=== PATIENT | female | born 1980 | race Caucasian/White ===

== ENCOUNTER 2022-02-19 14:03 | Outpatient (CLI) | payer MEDICAID, SELFPAY | END 2022-02-19 14:04 | disposition home or self-care (01) | LOC: NFLDREF 14:04 | PROVIDERS: PCP Physician Assistant Medical; Visit Provider Registered Nurse | DX: Z34.91 Encounter for supervision of normal pregnancy, unspecified, first trimester (principal); R76.8 Other specified abnormal immunological findings in serum; Z3A.12 12 weeks gestation of pregnancy | CPT/HCPCS: 87522 ==

== ENCOUNTER 2022-03-19 10:21 | Outpatient (CLI) | payer MEDICAID, SELFPAY | END 2022-03-19 10:22 | disposition home or self-care (01) | PROVIDERS: PCP Physician Assistant Medical; Visit Provider Registered Nurse | DX: O09.522 Supervision of elderly multigravida, second trimester (principal) | CPT/HCPCS: 81420 ==

== ENCOUNTER 2022-04-08 14:13 | Outpatient (CLI) | payer MEDICAID, SELFPAY | END 2022-04-08 14:14 | disposition home or self-care (01) | LOC: US 14:13 | PROVIDERS: PCP Physician Assistant Medical; Visit Provider Pediatrics Neonatal-Perinatal Medicine | DX: O09.522 Supervision of elderly multigravida, second trimester (principal); Z3A.19 19 weeks gestation of pregnancy | CPT/HCPCS: 76811 ==

== ENCOUNTER 2022-06-10 08:17 | Outpatient (CLI) | payer MEDICAID, SELFPAY ==
[2022-06-11 23:22] LABS: Rapid Plasma Reagin (RPR) Non Reactive (Non Reactive)
== END 2022-06-10 08:18 | disposition home or self-care (01) ==
LOC: FRMREF 08:17
PROVIDERS: PCP Physician Assistant Medical; Visit Provider Obstetrics & Gynecology
DX: Z34.90 Encounter for supervision of normal pregnancy, unspecified, unspecified trimester (principal)
CPT/HCPCS: 86592

== ENCOUNTER 2022-06-25 11:32 | Outpatient (CLI) | payer MEDICAID, SELFPAY ==
--- NOTE | 2022-06-25 11:30 | CRLHL7_ITS ---
For Patients: As a result of the Cures Act, medical imaging exams and procedure reports are released immediately into your electronic medical record. You may view this report before your referring provider. If you have questions, please contact your health care provider. INDICATION: female. Size greater than dates. 30 weeks 4 days according to the last menstrual period. TECHNIQUE: Transabdominal obstetrical ultrasound. FINDINGS: Single living intrauterine in breech presentation. Anterior placenta. heart rate 142 beats per minute. Normal amniotic fluid volume. Single deepest pocket measurement 5.9 cm. Biparietal diameter 7.65 cm, 30 weeks 5 days, 42nd percentile. Head circumference 29.68 cm, 32 weeks 6 days, 77th percentile. Abdominal circumference 29.84 cm, 33 weeks 6 days, greater than the 97th percentile. Femur length 5.54 cm, 29 weeks 1 day, 7.6 percentile. Composite calculated ultrasound age 31 weeks 5 days for sonographic due date of August 22, 2022. This is advanced by 1 week when compared with the age based on the last menstrual period provided. Estimated weight 1904 g which lies at the 87th percentile. The head to abdominal circumference ratio is 0.99 (0.96-1.15). The femur length to abdominal circumference ratio is 18.56 (20.0-24.0). IMPRESSION: Single living intrauterine in krystina breech presentation. Anterior placenta. Composite calculated ultrasound age 31 weeks 5 days with a sonographic due date of August 22, 2022. This is 1 week advanced when correlated with the age based on the last menstrual period provided. Dictated by Tuan Manrique MD @ 06/25/2022 9:24:29 PM (Electronically Signed)
== END 2022-06-25 11:33 | disposition home or self-care (01) ==
LOC: US 11:33
PROVIDERS: PCP Physician Assistant Medical; Visit Provider Physician Assistant
DX: O36.60X0 Maternal care for excessive fetal growth, unspecified trimester, not applicable or unspecified (principal); Z3A.30 30 weeks gestation of pregnancy
CPT/HCPCS: 76816

== ENCOUNTER 2022-07-08 09:43 | Outpatient (CLI) | payer MEDICAID, SELFPAY ==
--- NOTE | 2022-07-08 09:45 | CRLHL7_ITS ---
For Patients: As a result of the Century Cures Act, medical imaging exams and procedure reports are released immediately into your electronic medical record. You may view this report before your referring provider. If you have questions, please contact your health care provider. INDICATION: Advanced maternal age COMPARISON: 06/25/2022 TECHNIQUE: Real time de la garza scale imaging of the fetus was performed. Without non-stress testing. FINDINGS: Sonographic imaging demonstrates a single living intrauterine gestation. Fetus demonstrates a regular cardiac rate of 146 beats per minute. Fetus has a vertex position. The amniotic fluid volume appears normal and there is a single deepest pocket measurement of 7.4 cm. The fetus was active and demonstrated normal breathing movements. There was normal flexion and extension of the trunk and extremities. IMPRESSION: Normal biophysical profile score of 8 out of 8. Dictated by Alvino Miller MD @ 07/08/2022 10:31:33 AM (Electronically Signed)
== END 2022-07-08 09:44 | disposition home or self-care (01) ==
LOC: US 09:44
PROVIDERS: PCP Physician Assistant Medical; Visit Provider Obstetrics & Gynecology
DX: O09.519 Supervision of elderly primigravida, unspecified trimester (principal)
CPT/HCPCS: 76819

== ENCOUNTER 2022-08-05 11:09 | Outpatient (CLI) | payer MEDICAID, SELFPAY ==
[2022-08-06 12:19] LABS: Strep B DNA Probe NEGATIVE (Negative)
[2022-08-06 20:56] LABS: Strep B Pen/Amox Allergy Yes
== END 2022-08-05 11:10 | disposition home or self-care (01) ==
LOC: NFLDREF 11:09
PROVIDERS: PCP Physician Assistant Medical; Visit Provider Obstetrics & Gynecology
DX: Z34.93 Encounter for supervision of normal pregnancy, unspecified, third trimester (principal); Z3A.35 35 weeks gestation of pregnancy
CPT/HCPCS: 76816; 76819; 87081; 87653

== ENCOUNTER 2022-08-22 07:55 | Inpatient (IN) | payer MEDICAID, SELFPAY ==
[2022-08-22] VITALS (17 sets, daily range): BP systolic 106–144; BP diastolic 53–66; PULSE 76–105; RESP 16–22; TEMP 36.6–37; O2SAT 97–100; BMI 37.5
[2022-08-22] MEDS: miSOPROStoL 25 MCG/0.25 TABLET PO ×5 (09:31→19:29)
[2022-08-22 09:44] LABS: SARS PCR* Negative SARS-CoV-2 (Negative)
--- NOTE | 2022-08-22 20:56 | PM.OBHPLI ---
OB - H&P: HPI Labor/Induction History of Present Illness Time Seen by Provider: 09:00 Date Seen: 08/22/22 Chief Complaint: Leakage of fluid Chief complaint: Maternity : 3 Para: 2 Narrative: Noris Whitmore is a 41 year old female 002 at 38 weeks 6 days who presents to the Center due to copious amount of leakage of fluid at 6:00 a.m. she states that she woke up and was soaked and amniotic fluid. She endorses intermittent contractions, but not regular. She denies any vaginal bleeding or abnormal vaginal discharge. Patient denies fever, chills, chest pain, SOB, n/v, headache, vision changes, RUQ pain, or dizziness. Meds Home Medications and Allergies Home Medications Medication Instructions Recorded Confirmed Type acetaminophen 325 mg tablet 325 mg PO PRN 02/19/22 08/22/22 History diphenhydramine HCl 25 mg tablet 25 mg PO .Once as needed PRN 02/19/22 08/22/22 History prenat.vits,maria del rosario,[id number] 1 tab PO QDAY 02/19/22 08/22/22 History Allergies Allergy/AdvReac Type Severity Reaction Status Date / Time amoxicillin Allergy Severe Unknown- Verified 08/19/22 10:21 as a child strawberry Allergy Unknown Anaphylaxis Verified 08/22/22 08:02 cephalexin AdvReac Mild Vomiting Verified 08/19/22 10:21 Penicillin Allergy Unknown Unknown Uncoded 08/22/22 08:02 OB - H&P: Exam Physical Exam: Vital signs: Temp Pulse Resp BP Pulse Ox 97.8 F 88 16 108/59 L 97 08/22/22 20:40 08/22/22 20:40 08/22/22 20:40 08/22/22 20:40 08/22/22 19:59 Narrative: Physical exam: General: No acute distress Psych: Alert and oriented x3, full affect HEENT: Normocephalic, atraumatic Lungs: Unlabored breathing Abdomen: Gravid, soft Pelvic exam: Gross ROM. SVE 09/09/ OB - Problem Based A/P Additional Plan (1) : Problem details: AMA Status: Acute Plan - Patient presents with PROM. Will start with cervical ripening with miso per protocol and transition to pitocin - Pain control: patient desires epidural eventually - See full H&P by Dr. Trent on 08/12/2022
[2022-08-22] MEDS: LACTATED RINGERS 1000 ML 1,000 ML 999 ML IV ×3 (21:21→23:43)
[2022-08-22] MEDS: ACETAMINOPHEN 500 MG TABLET 1000 MG PO (21:56)
[2022-08-22] MEDS: ROPIVACAINE 0.2% 100 ml 100 ML 12 MG EPIDURAL (23:48)
[2022-08-23] VITALS (35 sets, daily range): BP systolic 102–135; BP diastolic 51–75; PULSE 77–184; RESP 16–20; TEMP 36.5–36.9; O2SAT 96–99
--- NOTE | 2022-08-23 00:12 | PM.ANBPRC ---
[facility] Medical History (Updated 07/22/22 @ 10:44 by Mamta Hall MD) Hyperopic astigmatism of both eyes (02/24/19) Mononucleosis syndrome (2018) Spontaneous vaginal delivery (07/09/18) Vaginal delivery (03/16/20) Surgical History (Updated 02/11/22 @ 09:22 by Tina Wang) History of placement of ear tubes Family History (Updated 02/09/22 @ 16:17 by Tina Wang) Maternal Grandmother Breast cancer Social History (Updated 02/09/22 @ 16:17 by Tina Wang) Narrative: Does not drink alcohol Does not use illicit drugs Non-smoker Smoking Status: Never smoker Meds Home Medications and Allergies Home Medications Medication Instructions Recorded Confirmed Type acetaminophen 325 mg tablet 325 mg PO PRN 02/19/22 08/22/22 History diphenhydramine HCl 25 mg tablet 25 mg PO .Once as needed PRN 02/19/22 08/22/22 History prenat.vits,maria del rosario,[id number] 1 tab PO QDAY 02/19/22 08/22/22 History Allergies Allergy/AdvReac Type Severity Reaction Status Date / Time amoxicillin Allergy Severe Unknown- Verified 08/19/22 10:21 as a child strawberry Allergy Unknown Anaphylaxis Verified 08/22/22 08:02 cephalexin AdvReac Mild Vomiting Verified 08/19/22 10:21 Penicillin Allergy Unknown Unknown Uncoded 08/22/22 08:02 Results Labs Labs: Laboratory Results - last 24 hr 08/22/22 07:20 SARS-CoV-2 (PCR) Negative SARS-CoV-2 Vital Signs Vital Signs: Last Vital Signs Temp 98.1 F 08/22/22 22:49 Pulse 89 08/23/22 00:11 Resp 20 08/22/22 22:49 BP 132/61 08/23/22 00:11 Pulse Ox 100 08/22/22 23:52 Weight: 99.246 kg Height: 162.56 cm Anesthesia Procedures Epidural Insertion Patient Location: OB Start Time: 23:30 Stop Time: 00:30 Start Date: 08/22/22 Stop Date: 08/23/22 Reason for Block: procedure for pain Patient Position: sitting Performed By: Trevor De La Paz Preanesthetic Checklist: IV checked, risks and benefits discussed, surgical consent, monitors and equipment checked, pre-op evaluation, timeout performed and anesthesia consent Prep: chlorhexidine gluconate Monitoring: blood pressure monitoring, continuous pulse oximetry and heart rate Approach: midline Vertebral Space: lumbar (1-5) Epidural Technique: DIANE saline Needle Type: Tuohy needle Injection Technique: continuous catheter Needle gauge: 17 Needle Length (cm): 10 cm Needle Insertion Depth (cm): 6 Catheter Gauge: 19 Catheter Type: multi-orifice Catheter at skin depth (cm): 12 Test Dose Result: negative and lidocaine 1.5% with epinephrine 1 to 200,000
[2022-08-23] MEDS: OXYTOCIN 30 unit/500 ML in NS 30 UNIT/500 ML BAG 325 UNIT IVPB (01:28)
[2022-08-23] MEDS: ACETAMINOPHEN 500 MG TABLET 1000 MG PO ×3 (06:34→23:20)
--- NOTE | 2022-08-23 10:04 | PM.OBPRCVD ---
Procedure Delivery date: 08/23/22 Procedure Done: Global Procedure Details: The patient is a 41 year-old G 3 P 2001 admitted on August 22 at 38 and 6/7 weeks gestation for spontaneous rupture of membranes. Cervical exam on admission was 1 cm/75 % effaced/-3 station with membranes ruptured in vertex presentation. Contractions were every 10-15 minutes. heart rate demonstrated baseline 150s bpm with moderate variability, positive accelerations, negative decelerations; a category 1 tracing. GBS negative. SROM occurred at 0600 on August 22 with clear fluid. Labor Analgesia: Nitrous gas an epidural Pitocin: Yes Labor onset: August 23 at midnight Complete: August 23 at 0050 Pushing: August at 0119 heart tones during second stage were cat II with intermittent variables At 0126 a viable male infant delivered in vertex OA presentation over first-degree perineal laceration via spontaneous vaginal delivery. Infant was placed on maternal abdomen. Cord was clamped and cut after a 30-60 second delay. Nose and mouth were bulb suctioned. Infant weight: 3490. 8 at 1 minute and 9 at 5 minutes. Shoulder dystocia: No. Nuchal cord: Tight nuchal cord times still, reduced after delivery of the head. Placenta delivered spontaneously and complete at 0129 with a 3 vessel cord. Complications: None. Mother and were stable after delivery. Laceration(s): First-degree, repaired with 2-0 chromic continuous locking suture. Estimated blood loss: 50 mL. Sponge and needles counts are correct. Mother and were stable at the time of this note. Noris is planning on breasting feeding. Events: Labor Augmentation and Premature Rupture of Membrane Intrapartal Events: Labor Augmentation Induction method: per misoprostol protocol Delivery augmentation: pitocin Delivery monitor: external FHT Route of delivery: Laceration description: Perineal - 1st Degree Delivery repair: Chromic Estimated blood loss (mL): 50 Anesthesia type: Epidural Disposition: floor [place] Infant Gender: Male total score - 1 minute: 8 total score - 5 minute: 9
[2022-08-23] MEDS: DOCUSATE SODIUM 100 MG CAPSULE PO (11:18)
--- NOTE | 2022-08-23 12:59 | PC.NURSE ---
Pt refused MMR vaccine .
[2022-08-23] MEDS: LANOLIN CREAM 1 APPLIC TOPICAL (23:20)
[2022-08-24] MEDS: ACETAMINOPHEN 500 MG TABLET 1000 MG PO ×2 (06:35→13:57)
[2022-08-24 06:58] LABS: Hemoglobin* 11.8 gm/dL (12.0-16.0)
--- NOTE | 2022-08-24 07:59 | PM.OBDSVD1 ---
DS: Providers Provider Time Seen by Provider: 07:30 Date Seen: 08/24/22 Date of admission: 08/22/22 07:55 Primary care physician: Sharon Delgado PA-C Admitting Clinician: Vivi Sanders MD Attending Physician on discharge: Mago Gaytan CNM Date of Discharge: 08/24/22 DS: Diagnosis Discharge Diagnosis (1) state: Status: Acute (2) Lactating mother: Status: Acute Exam Narrative: Exam Narrative: Objective: VSS, afebrile GENERAL APPEARANCE: ?normal affect, alert, no distress MOOD: ?appropriate HEENT: normocephalic, neck supple, full ROM CHEST: ?Symmetrical chest wall movement. ?Normal respiratory effort. ?Clear to auscultation HEART: ?regular rate and rhythm ABDOMEN: ?soft, non-tender. Uterine fundus is firm, 3 above Umbilicus, Midline and is appropriate for the stage of recovery. ?Bowel sounds present. PERINEUM: ?mild edema of the perineum, there is a 1st degree laceration that is healing well. EXTREMITIES: ?normal and no edema Const: Vital Signs, click to edit/add: Vital Signs - 24 hr 08/23/22 08:23 08/23/22 11:13 08/23/22 15:03 Temperature 98 F 97.7 F 97.7 F Pulse Rate [Blood Pressure Cuff] 81 80 90 Respiratory Rate 16 16 16 Blood Pressure [Le ft Arm] 122/73 Blood Pressure [Ri ght Arm] 106/66 106/69 Pulse Oximetry 96 96 97 Oxygen Delivery Me thod Room Air Room Air Room Air 08/23/22 19:31 08/23/22 23:23 Temperature 98 F 97.8 F Pulse Rate [Blood Pressure Cuff] 87 88 Respiratory Rate 20 20 Blood Pressure [Le ft Arm] 117/71 103/63 Blood Pressure [Ri ght Arm] Pulse Oximetry 98 98 Oxygen Delivery Me thod Room Air Room Air Documenting provider has reviewed patient's vital signs: yes OB - DS: Summary Hospital Course Hospital Course: Subjective: Rene is a 41 year old G 3 now P 3 at 38 6/7 weeks gestation that was admitted to the Center on 08/22/22 for PROM. She had an uncomplicated vaginal delivery. She delivered a viable male . The patient feels really good. The pain is well controlled with current medications. ?She has no new complaints. ?She is breast feeding and reports things are going well.? the patient has done well.? Vitals have been stable.? She has remained afebrile.? Has a good appetite, is tolerating a general diet. ?She is voiding without difficulty.? She is passing gas and has not had a bowel movement.? She is ambulating and denies any dizziness.? Has small amount of rubra lochia. ?She is planning natural family planning for prevention. Assessment: G3 now P3 Lactating Mother plan: Discharge home with baby. Follow up in 2 weeks and 6 weeks. , may follow up with if needed Peripartum Data Infant delivery method: Vaginal Laceration description: Perineal - 1st Degree complications: none Gender: Male Infant Discharge Plan: Home Status at Discharge Functional status at discharge: independent ambulation Overall status at discharge: patient is progressing back to baseline Time Spent with Patient Time attestation: Total time spent providing and/or coordinating discharge services: Time spent: Less than 30 minutes Discharge Plan Discharge Disposition: Home, Self-Care Date of Admission: 08/22/22 07:55 Attending Provider on Discharge: Mago Gaytan Primary Care Provider: Sharon Delgado Condition: Stable Anticipated Discharge Date/Time: 08/24/22 08:11 Discharge Medications: New docusate sodium 100 mg Capsule 100 mg PO BID Qty: 100 0RF Continued acetaminophen 325 mg tablet 325 mg PO PRN Rx Instructions: NO MORE THAN 4000 MG/DAY diphenhydramine HCl 25 mg tablet 25 mg PO .Once as needed PRN prenat.vits,maria del rosario,[id number] Tablet 1 tab PO QDAY Discharge Orders: Discharge Order (Routine); Ordered 08/24/22 Ordered By: Mago Gaytan Patient Education: OB Over the Counter Medication Information, OB Vaginal/Breast Feeding Additional Instructions: Return to clinic for 2 Week and 6 week visits Activity Level: Activity as Tolerated Discharge Diet: Regular Follow Up Appointments: Sharon Delgado PA-C [Primary Care Provider] - Forms: [employer] Info Instructions
[2022-08-24 08:10] VITALS: BP 104/70; PULSE 90; RESP 16; TEMP 37; O2SAT 96
== END 2022-08-24 15:50 | disposition home or self-care (01) | DRG 807 ==
LOC: OB OUT 07:56 → OB 07:56
PROVIDERS: Obstetrics & Gynecology; Admitting Provider Obstetrics & Gynecology; PCP Physician Assistant Medical; Visit Provider Obstetrics & Gynecology
DX: O42.02 Full-term premature rupture of membranes, onset of labor within 24 hours of rupture (principal); Z37.0 Single live birth; O70.0 First degree perineal laceration during delivery; Z3A.38 38 weeks gestation of pregnancy
CPT/HCPCS: 01967; 36415; 59200; 85018; 87635; A9270; J2795; J7120; S0020

== ENCOUNTER 2024-03-29 20:45 | Emergency (ER) | payer MEDICAID, SELFPAY ==
[2024-03-29 21:09] VITALS: BP 130/75; PULSE 80; RESP 18; TEMP 36.4; O2SAT 98; BMI 35.8
--- NOTE | 2024-03-29 21:50 | ED.GENADULT ---
HPI - General Adult General Chief complaint: Skin/Abscess/Foreign Body Stated complaint: L leg bug bite infection-red, hot-lower below knee Time Seen by Provider: 03/29/24 21:22 Source: patient Mode of arrival: ambulatory Limitations: no limitations History of Present Illness HPI narrative: 43-year-old female presenting today with concerns of a bug bite. Patient states that she believes that occurred on Wednesday, did not see a bug on her skin. Noticed on Wednesday and on Wednesday that the redness was increasing around the bug bite. The area is pruritic. No fevers or chills. No nausea or vomiting. No tick sightings. Related Data Previous Rx's ?Medication ?Instructions ?Recorded azithromycin 250 mg tablet See Rx Instructions PO .COMPLEX #6 07/24/23 tabs Allergies Allergy/AdvReac Type Severity Reaction Status Date / Time amoxicillin Allergy Severe Unknown- Verified 07/24/23 09:10 as a child strawberry Allergy Unknown Anaphylaxis Verified 07/24/23 09:10 cephalexin AdvReac Mild Vomiting Verified 07/24/23 09:10 azithromycin AdvReac Verified 03/29/24 21:11 Penicillin Allergy Unknown Unknown Uncoded 07/24/23 09:10 Review of Systems Status of ROS: Reports: 6 or more systems reviewed and unremarkable except as noted in History and below [facility] Medical History Bronchitis ?J40 - Bronchitis, not specified as acute or chronic (ICD-10) Vaginal delivery (03/16/20) ?O80 - Encounter for full-term uncomplicated delivery (ICD-10) Spontaneous vaginal delivery (07/09/18) ?O80 - Encounter for full-term uncomplicated delivery (ICD-10) Mononucleosis syndrome (2018) ?B27.90 - Infectious mononucleosis, unspecified without complication (ICD-10) Hyperopic astigmatism of both eyes (02/24/19) ?H52.203 - Unspecified astigmatism, bilateral (ICD-10) Surgical History History of placement of ear tubes ?Z96.22 - Myringotomy tube(s) status (ICD-10) Family History Maternal Grandmother Breast cancer Social History Narrative: Does not drink alcohol Does not use illicit drugs Non-smoker Smoking Status: Never smoker Little interest or pleasure in doing things: not at all Feeling down, depressed, or hopeless: not at all Exam Narrative: Exam Narrative: Well-nourished well-developed patient in no acute distress. Alert and oriented. Answers questions appropriately. Mood and affect are appropriate. Thoughts are goal oriented and rational. No tangential or magical thinking noted. Patient speaks in full sentences without needing to catch her breath. HEENT: Normocephalic atraumatic. Pupils are equally round reactive to light. Extraocular muscles are intact. Conjunctivae are moist without any icterus noted. Moist mucous membranes. Extremities: All the patient's left lower medial extremity she has a central elevated papule with surrounding light ecchymosis and erythema that extends approximately 4 cm in diameter. The skin is not indurated raised or hot. Const: Vital Signs, click to edit/add: Vital Signs - 24 hr 03/29/24 21:09 Temperature 97.6 F Pulse Rate [Pulse Oximeter] 80 Respiratory Rate 18 Blood Pressure [Ri ght Upper Arm] 130/75 Pulse Oximetry 98 Oxygen Delivery Me thod Room Air Course Vital Signs Vital signs: Initial Vital Signs Temperature 97.6 F 03/29/24 21:09 Temperature Source Temporal Artery Scan 03/29/24 21:09 Pulse Rate 80 03/29/24 21:09 Respiratory Rate 18 03/29/24 21:09 Blood Pressure 130/75 03/29/24 21:09 Blood Pressure Mean 93 03/29/24 21:09 Blood Pressure Position Sitting 03/29/24 21:09 Pulse Oximetry 98 03/29/24 21:09 Oxygen Delivery Method Room Air 03/29/24 21:09 Vital Signs Temperature 97.6 F 03/29/24 21:09 Pulse Rate 80 03/29/24 21:09 Respiratory Rate 18 03/29/24 21:09 Blood Pressure 130/75 03/29/24 21:09 Pulse Oximetry 98 03/29/24 21:09 Oxygen Delivery Method Room Air 03/29/24 21:09 Temperature 97.6 F 03/29/24 21:09 Pulse Rate 80 03/29/24 21:09 Respiratory Rate 18 03/29/24 21:09 Blood Pressure 130/75 03/29/24 21:09 Pulse Oximetry 98 03/29/24 21:09 Oxygen Delivery Method Room Air 03/29/24 21:09 Medical Decision Making MDM Narrative Medical decision making narrative: 43-year-old female with a bug bite that appears classic for a spider bite. We discussed that the skin does not appear infected, it appears to be a local reaction to the bite. We discussed symptomatic treatment, signs symptoms of infection and reasons for follow-up. We discussed possible scarring in the center and time of resolution. Patient had no other questions. Discharge Plan Discharge Clinical Impression: Spider bite Patient Disposition: Home, Self-Care Condition: Stable Additional Instructions: Keep leg clean. Avoid scratching. Okay to use hydrocortisone cream for itching. Okay to use ibuprofen or Tylenol for discomfort. Return to the ER if the area becomes hot, skin becomes raised or firm or you develop fevers. Rash should improve in a couple of weeks. Prescriptions: No Action azithromycin 250 mg tablet See Rx Instructions PO .COMPLEX Qty: 6 0RF Rx Instructions: For 250 mg dose pack: take 500 mg today (day 1), then 250 mg for 4 days (days 2-5) PO Follow Up/Referrals: Sharon Delgado PA-C [Primary Care Provider] - Stand Alone Forms: [employer] Info Instructions
== END 2024-03-29 22:00 | disposition home or self-care (01) ==
LOC: ED 21:58
PROVIDERS: Emergency Provider Family Medicine; PCP Physician Assistant
DX: S80.862A Insect bite (nonvenomous), left lower leg, initial encounter (principal); W57.XXXA Bitten or stung by nonvenomous insect and other nonvenomous arthropods, initial encounter
CPT/HCPCS: 99282; 99283

== ENCOUNTER 2024-08-23 12:38 | Emergency (ER) | payer MEDICAID, SELFPAY ==
--- OUTSIDE RECORDS SUMMARY | 2024-08-23 12:41 | XMS_ITS | Clinical Summary ---
Author Organization [facility] Address [address] [place] [id number] Care Team Providers Care Tack Cleaner Name Role Phone No Ref-Primary, Physician Primary Care Provider Allergies Active Allergy Reactions Criticality Noted Date Comments Penicillins Unknown 02/24/2019 Medications No known medications Encounters Date Type Department Care Team Description 06/21/2024 Telephone [facility] Centralized Scheduling [facility] [place] [address] No Ref-Primary, Physician Results 06/21/[address] [phone] Marv Mcgee MD Follow Up (Requesting podiatry referral ) 06/20/2024 4:10 PM LINE BUILDER Ancillary Procedure [address] [phone] Marv Hurley DO 06/20/2024 3:40 PM LINE BUILDER Office Visit [facility] [address] [phone] Marv Hurley DO Foot injury, right, initial encounter (Primary Dx) 06/20/2024 Travel from Last 3 Months Social History Tobacco Use Types Packs/Day Years Used Date Smoking Tobacco: Never Smokeless Tobacco: Never Tobacco Cessation:Counseling Given: Not Answered Comments Unknown Sex and Gender Information Value Date Recorded Sex Assigned at Not on file Legal Sex Female 3:36 PM LINE BUILDER Gender Identity Not on file Sexual Orientation Not on file Last Filed Vital Signs Vital Sign Reading Time Taken Comments Blood Pressure 112/73 06/20/2024 3:45 PM LINE BUILDER Pulse 80 06/20/2024 3:45 PM LINE BUILDER Temperature 36.7 C (98 F) 06/20/2024 3:45 PM LINE BUILDER Respiratory Rate 18 06/20/2024 3:45 PM LINE BUILDER Oxygen Saturation 98% 06/20/2024 3:45 PM LINE BUILDER Inhaled Oxygen Concentration - - Weight 101.6 kg (224 lb) 06/20/2024 3:45 PM LINE BUILDER Height - - Body Mass Index - - Plan of Treatment Health Maintenance Due Date Last Done Comments ADVANCE CARE PLANNING 1981 ANNUAL REVIEW OF HM ORDERS 1981 GLUCOSE 1981 MAMMO SCREENING 1981 YEARLY PREVENTIVE VISIT 1984 HIV SCREENING 1996 HEPATITIS C SCREENING 12/21/1999 HEPATITIS B IMMUNIZATION (1 of 3 - 19+ 3-dose series) 2000 DTAP/TDAP/TD IMMUNIZATION (1 - Tdap) 2006 PAP 11/22/2020 11/22/2017, 11/22/2017 LIPID 2021 PHQ-2 (once per calendar year) 2023 COVID-19 Vaccine ( - 2023-2 5 season) 2024 INFLUENZA VACCINE (#1) 2024 RSV VACCINE (1 - 1-dose 75+ series) 2056 HPV IMMUNIZATION Aged Out No longer e ligible based on patient's age to complete this topic MENINGITIS IMMUNIZATION Aged Out No l onger eligible based on patient's age to complete this topic Pneumococcal Vaccine: Pediatrics (0 to 5 Years) and At-Risk Patients (6 to 49 Years) Aged Out No longer eligible b ased on patient's age to complete this topic RSV MONOCLONAL ANTIBODY Aged Out No l onger eligible based on patient's age to complete this topic Procedures Procedure Name Priority Date/Time Associated Diagnosis Comments XR FOOT RIGHT G/E 3 VIEWS STAT 06/20/2024 4:20 PM LINE BUILDER Foot injury, right, initial encounter from Last 3 Months Results * XR Foot Right G/E 3 Views (06/20/2024 4:20 PM LINE BUILDER) Anatomical Region Laterality Modality Foot, Ankle Right Computed Radiogr aphy Impressions 06/20/2024 4:32 PM LINE BUILDER IMPRESSION: Normal joint spaces and alignment. No definitive evidence of an acute fracture, with attention to the base of the fifth metatarsal. No Lisfranc subluxation. Mild distal Achilles tendon enthesopathy. Calcaneal heel spur. GIOVANNY YAN MD SYSTEM ID: [id number] Narrative 06/20/2024 4:32 PM LINE BUILDER XR FOOT RIGHT G/E 3 VIEWS 06/20/2024 4:20 PM HISTORY: Foot injury, right, initial encounter. COMPARISON: None. Procedure Note Giovanny Yan MD - 06/20/2024 XR FOOT RIGHT G/E 3 VIEWS 06/20/2024 4:20 PM HISTORY: Foot injury, right, initial encounter. COMPARISON: None. IMPRESSION: Normal joint spaces and alignment. No definitive evidence of an acute fracture, with attention to the base of the fifth metatarsal. No Lisfranc subluxation. Mild distal Achilles tendon enthesopathy. Calcaneal heel spur. GIOVANNY YAN MD SYSTEM ID: [id number] Marv Hurley DO [facility] ORDERA BLES Final Result from Last 3 Months Insurance [facility] Care Teams Tack Cleaner Relationship Specialty Start Date End Date No Ref-Primary, Physician PCP - General 06/20/24
--- OUTSIDE RECORDS SUMMARY | 2024-08-23 12:41 | XMS_ITS | Referral Summary ---
Author Organization [facility] Address [facility] [place] [address] Care Team Providers Care Administrative Associate Name Role Phone No Ref-Primary, Physician Primary Care Provider Encounters Date Type Department Care Team Description 06/21/2024 Telephone [facility] Centralized Scheduling [address] [place] [address] No Ref-Primary, Physician Results 06/21/[address] [phone] Marv Mcgee MD Follow Up (Requesting podiatry referral ) 06/20/2024 4:10 PM CARE GIVER Ancillary Procedure [address] [phone] Marv Hurley DO 06/20/2024 Travel 06/20/2024 3:40 PM CARE GIVER Office Visit [facility] [address] [phone] Marv Hurley DO Foot injury, right, initial encounter (Primary Dx) from Last 3 Months Allergies Active Allergy Reactions Criticality Noted Date Comments Penicillins Unknown 02/24/2019 Medications No known medications Social History Tobacco Use Types Packs/Day Years Used Date Smoking Tobacco: Never Smokeless Tobacco: Never Tobacco Cessation:Counseling Given: Not Answered Comments Unknown Sex and Gender Information Value Date Recorded Sex Assigned at Not on file Legal Sex Female 3:36 PM CARE GIVER Gender Identity Not on file Sexual Orientation Not on file Last Filed Vital Signs Vital Sign Reading Time Taken Comments Blood Pressure 112/73 06/20/2024 3:45 PM CARE GIVER Pulse 80 06/20/2024 3:45 PM CARE GIVER Temperature 36.7 C (98 F) 06/20/2024 3:45 PM CARE GIVER Respiratory Rate 18 06/20/2024 3:45 PM CARE GIVER Oxygen Saturation 98% 06/20/2024 3:45 PM CARE GIVER Inhaled Oxygen Concentration - - Weight 101.6 kg (224 lb) 06/20/2024 3:45 PM CARE GIVER Height - - Body Mass Index - - Plan of Treatment Not on file Procedures Procedure Name Priority Date/Time Associated Diagnosis Comments XR FOOT RIGHT G/E 3 VIEWS STAT 06/20/2024 4:20 PM CARE GIVER Foot injury, right, initial encounter from Last 3 Months Results * XR Foot Right G/E 3 Views (06/20/2024 4:20 PM CARE GIVER) Anatomical Region Laterality Modality Foot, Ankle Right Computed Radiogr aphy Impressions 06/20/2024 4:32 PM CARE GIVER IMPRESSION: Normal joint spaces and alignment. No definitive evidence of an acute fracture, with attention to the base of the fifth metatarsal. No Lisfranc subluxation. Mild distal Achilles tendon enthesopathy. Calcaneal heel spur. GIOVANNY YAN MD SYSTEM ID: [id number] Narrative 06/20/2024 4:32 PM CARE GIVER XR FOOT RIGHT G/E 3 VIEWS 06/20/2024 [...] heel spur. GIOVANNY YAN MD SYSTEM ID: [id number] Marv Linder X[facility] ORDERA BLES Final Result from Last 3 Months Insurance [facility] Care Teams Administrative Associate Relationship Specialty Start Date End Date No Ref-Primary, Physician PCP - General 06/20/24
--- OUTSIDE RECORDS SUMMARY | 2024-08-23 12:41 | XMS_ITS | Clinical Summary ---
Author Organization [employer] [facility] Address [place], [place] [address] Care Team Providers Care Shop Tech Name Role Phone Pcp, No Primary Care Provider Unavailabl e Allergies Active Allergy Reactions Criticality Noted Date Comments Penicillins *Unknown 02/24/2019 Medications albuterol HFA (PRO-AIR; VENTOLIN; PROVENTIL) 90 mcg/actuation inhalerIndicat ions:Bronchiti s Inhale 1-2 Puffs by mouth every 4 hours if needed for Shortness Of Breath or Wheezing. 1 Each 4 Active fluticasone (50 mcg per actuation) nasal solution (FLONASE)Indic ations:Chronic cough Inhale 1 Show Low in both nostrils two times daily. 16 g 3 4 Active cefadroxil (DURICEF) 500 mg capsuleIndicat ions:Celluliti s of right leg Take 1 Capsule (500 mg) by mouth two times daily for 7 days. 14 Capsule 4 07/27/20 24 Discontinue d(*Med complete/Re gimen complete/Le tasha of care change) doxycycline 100 mg tabletIndicati ons:Cellulitis of right leg Take 1 Tablet (100 mg) by mouth two times daily for 7 days. 14 Tablet 4 08/03/20 24 Active Problems Problem Noted Date Diagnosed Date Pap smear for cervical cancer screening 08/01/20 24 Overview (08/01/2024): 07/2024 NIL/ HPV negative Plan: Pap/ HPV due 07/2029 Hyperopic astigmatism of both eyes 02/24/2019 Encounters Date Type Department Care Team Description 08/14/2024 Telephone [facility] [address] [place] [address] Nancy Aponte, DO Follow Up 07/27/2024 1:15 PM CHILD MONITOR Office Visit [facility] [address] [place] [address] aRmírez Cheema, MEAT INSPECTOR Derm Problem 07/27/2024 Travel 07/27/2024 Nurse Triage [facility] [id number] [place] [id number] Pcp, No Bite, Animal 07/24/2024 10:35 AM CHILD MONITOR Office Visit [facility] [address] [place] [address] Nancy Aponte, Establish Care; Physical (43 year old female); Cough (Whooping cough in March, cough has not gone away) 07/24/2024 Travel 07/11/2024 3:20 PM CHILD MONITOR Office Visit [facility] [address] [place] [address] Giovanny Marinelli, OD Eye Exam (CEE) 07/11/2024 Travel 05/30/2024 12:45 PM CDT Ancillary Procedure [facility] [id number] [place] [address] 05/30/2024 12:05 PM CDT Office Visit [address] [address] Nick Malave MD Cough (Patient was diagnosed with whooping cough 6 weeks ago.) 05/30/2024 Travel from Last 3 Months Immunizations Name Administration Dates Next Due MMR 03/16/2020 Tdap 07/27/2024 Family History Medical History Relation Name Comments Good Health Brother 1 Good Health Brother 2 Good Health Father Alcoholism Maternal Grandfather Cancer-breast Maternal Grandmother Eclampsia Mother Iron deficiency Mother Lung cancer Paternal Grandfather Agent o range related? Lung cancer Paternal Uncle Good Health Sister Iron deficiency Sister Relation Name Status Comments Brother 1 Alive Brother 2 Alive Father Maternal Grandfather Maternal Grandmother Mother Paternal Grandfather Paternal Uncle Alive Sister Alive Social History Tobacco Use Types Packs/Day Years Used Date Smoking Tobacco: Never Smokeless Tobacco: Never Alcohol Use Standard Drinks/Week Comments Never 0 (1 standard drink = 0.6 oz pur e alcohol) [facility] Utilities Answer Date Recorded Do you have trouble paying f or utilities (for example, heat, electricity, water, phone)? Yes 04/04/2024 PHQ-2 Answer Date Recorded PHQ-2 TOTAL SCORE 0 07/24/2024 Social Connections Answer Date Recorded Do you often feel lonely or isolated from those around you? 0 04/04/2024 Financial Resource Strain Answer Date R ecorded Difficulty of Paying Living Expenses 3 05/30/2024 Difficulty of Paying Living Expenses Not on file 05/30/2024 Food Insecurity Answer Date Recorded Do you worry your food will run out before you are able to buy more? 1 04/04/2024 Transportation Needs Answer Date Record ed Does lack of transportation keep you from medica l appointments? 1 04/04/2024 Does lack of transportation keep you from work, meetings or getting things that you need? 1 04/04/2024 Housing Stability Answer Date Recorded What is your housing situation today? 1 04/04/2024 Comments No Sex and Gender Information Value Date Recorded Sex Assigned at Not on file Legal Sex Female 2:09 PM CDT Gender Identity Not on file Sexual Orientation Not on file Obstetrics History Para Term AB IAB SAB Ectopic Multiple Livin g Live Births 3 3 3 0 0 3 Date Outcome GA Total Labor Labor/2nd/3rd Weight Sex Type Anes PTL Nancie A1 A5 Name Clin Term Term Term Last Filed Vital Signs Vital Sign Reading Time Taken Comments Blood Pressure 116/58 07/27/2024 1:23 PM CHILD MONITOR Pulse 78 07/27/2024 1:23 PM CHILD MONITOR Temperature 36.4 C (97.5 F) 07/27/2024 1:23 PM CHILD MONITOR Respiratory Rate 16 07/27/2024 1:23 PM CHILD MONITOR Oxygen Saturation 96% 07/27/2024 1:23 PM CHILD MONITOR Inhaled Oxygen Concentration - - Weight 104.3 kg (229 lb 14.4 oz) 2023 10:36 AM CHILD MONITOR Height 164.4 cm (5' 4.72) 07/24/2024 1 0:36 AM CHILD MONITOR Body Mass Index 38.58 07/24/2024 10:36 AM CHILD MONITOR Plan of Treatment Upcoming Encounters Date Type Department Care Team (Late st Contact Info) Description 09/25/2024 2:00 PM CHILD MONITOR Office Visit [facility] [address] [place] [address] Eunice Mora PA [address] [place] [address] Health Maintenance Due Date Last Done Comments HIV for age 15-65 1996 Hepatitis C screening for age 18-79 12/21/1999 COVID-19 vaccine series ( season) 2024 Influenza for age 9-49 04/16/2024 BMI (ht and wt on same day) for age 18+ 07/24/2025 07/24/2024 Depression screening for age 12+ 07/27/2025 07/27/2024, 07/27/2024, 07/24/2024 Pap test for age 21-65 07/24/2029 , 07/24/2024, 11/22/2017, Additional history exists Tetanus booster 07/27/2034 07/27/2024 Tdap Completed 07/27/2024 Pneumococcal series for age 6-49 Aged Out No longer eligible based on patient's age to complete this topic Procedures Procedure Name Priority Date/Time Associated Diagnosis Comments HEMOGLOBIN A1C Routine 07/24/2024 11:28 AM CHILD MONITOR Diabetes mellitus screening LIPID PANEL W REFLEX MEASURED LDL Routine 07/24/2024 11:28 AM CHILD MONITOR Screening cholesterol level CABLE STRETCHER AND TESTER THIN PREP PAP SCREEN IMAGED Routine 07/24/2024 11:15 AM CHILD MONITOR Screening for cervical cancer HPV HIGH RISK Routine 07/24/2024 11:15 AM CHILD MONITOR Screening for cervical cancer XR CHEST 2 VIEWS PA AND LATERAL Routine 05/30/2024 12:40 PM CDT Cough, unspecified type from Last 3 Months Results * HEMOGLOBIN A1C (07/24/2024 11:28 AM CHILD MONITOR) HEMOGLOBIN A1C 5.3 <5.7 % of total Hgb [facility] Comment: For the purpose of screening for the presence of diabetes: <5.7% Consistent with the absence of diabetes 5.7-6.4% Consistent with increased risk for diabetes (prediabetes) > or =6.5% Consistent with diabetes This assay result is consistent with a decreased risk of diabetes. Currently, no consensus exists regarding use of hemoglobin A1c for diagnosis of diabetes in children. According to [place] Diabetes Association (ADA) guidelines, hemoglobin A1c <7.0% represents optimal control in non- diabetic patients. Different metrics may apply to specific patient populations. Standards of Medical Care in Diabetes(ADA). Blood BLOOD SPECIMEN / Unknown 07/24/2024 11:28 AM CHILD MONITOR 07/24/2024 11:29 AM CHILD MONITOR [facility] Nancie Aponte DO CHEMISTRY Final Result [facility] [address] [place] [address], [facility] [address] [place] [phone] * (ABNORMAL) LIPID PANEL W REFLEX MEASURED LDL (07/24/2024 11:28 AM CHILD MONITOR) CHOLESTEROL, TOTAL 133 <200 mg/dL [facility] HDL CHOLESTEROL 38(L) > OR = 50 mg/dL [facility] TRIGLYCERIDES 116 <150 mg/dL [facility] LDL-CHOLESTEROL 75 mg/dL (calc) [facility] Comment: Reference range: <100 Desirable range <100 mg/dL for primary prevention; <70 mg/dL for patients with CHD or diabetic patients with > or = 2 CHD risk factors. LDL-C is now calculated using the Rachel calculation, which is a validated novel method providing better accuracy than the Friedewald equation in the estimation of LDL-C. Saleem BEAN et al. AMARJIT. 2013;310(19): 0598-6853 (http://education.IForem/faq/NFK195) CHOL/HDLC RATIO 3.5 <5.0 (calc) [facility] NON HDL CHOLESTEROL 95 <130 mg/dL (calc) [facility] Comment: For patients with diabetes plus 1 major ASCVD risk factor, treating to a non-HDL-C goal of <100 mg/dL (LDL-C of <70 mg/dL) is considered a therapeutic option. Blood BLOOD SPECIMEN / Unknown 07/24/2024 11:28 AM CHILD MONITOR 07/24/2024 11:29 AM CHILD MONITOR Nancy Aponte DO CHEMISTRY Final Result Performing Organization Address City/State/[facility] Co de Phone Number [facility] [address] [place] [address], [facility] [address] [place] [address] * CABLE STRETCHER AND TESTER THIN PREP PAP SCREEN IMAGED [[id number]] (07/24/2024 11:15 AM CHILD MONITOR) Case Report Gynecologic Cytology Report Case: [id number] Authorizing Provider: Nancy Aponte DO Collected: 07/24/2024 1115 Ordering Location: [facility] Received: 07/24/2024 1210 Clinic First Screen: Peri Peña Specimen: CABLE STRETCHER AND TESTER ThinPrep Vial Screening, Cervical 08/01/2024 12:21 PM CHILD MONITOR [facility] INTERPRETATION/ RESULT NEGATIVE FOR INTRAEPITHELIAL LESION OR MALIGNANCY (NIL) (none) 08/01/2024 12:21 PM CHILD MONITOR [facility] IMEN ADEQUACY Satisfactory for evaluation Endocervical component present 08/01/2024 12:21 PM CHILD MONITOR [facility] HPV REQUEST HPV and PAP 08/01/2024 12:21 PM CHILD MONITOR [facility] Date of LMP 07/06/2024 08/01/2024 12:21 PM CHILD MONITOR [facility] Last Pap Date 11/22/17 08/01/2024 12:[address] [facility] Last Pap Result NIL 12:21 PM CHILD MONITOR [facility] Abnormal Pap or [place] Bx in last 5 years No 08/01/2024 12:21 PM CHILD MONITOR [facility] Menstrual Status Regular Periods 08/01/2024 12:[address] [facility] [place] Bx Done Today No 08/01/2024 12:[address] [facility] Additional Information None given 08/01/2024 12:[address] [facility] Comment: Cytology is screened at [facility] - [address], [place] [address] and [facility] - [address] [facility] [place] [address] and Laboratory - [address] [facility] [place] [address] Interpreted at [facility] - [address], [place] [address] Automated Review Successful 08/01/2024 12:[address] [facility] Comment:Specimen processed s uccessfully by automated office auditor device, ThinPrep Imaging System, [employer] ANCILLARY TESTING CABLE STRETCHER AND TESTER HPV Ordered, Please see separate report 08/01/2024 12:[address] [facility] Note The pap test is a screening technique, not a diagnostic procedure. It is used primarily to screen for squamous cancers and precursor lesions. Published studies have shown that it is subject to both false negative and false positive results. The pap test should not be used as the sole means to diagnose or exclude pre-malignant and malignant lesions. 08/01/2024 12:[address] [facility] Other (Cervical) Non-Blood / Unknown 07/24/2024 11:15 AM CHILD MONITOR 07/24/2024 12:10 PM CHILD MONITOR Nancy Aponte DO PATHOLOGY/CYTOLOGY Final Resu lt [facility] [address] [place] [id number], * HPV HIGH RISK (07/24/2024 11:15 AM CHILD MONITOR) TYPE 16 Negative Negative 07/27/2024 2:48 PM CHILD MONITOR [facility] TYPE 18 Negative Negative 07/27/2024 2:48 PM CHILD MONITOR [facility] TRAL LABORATORY OTHER HIGH RISK TYPES Negative Negative 07/27/2024 2:48 PM CHILD MONITOR [facility] TRA [facility]ORAT[facility] Other (Cervical) Non-Blood / Unknown 07/24/2024 11:15 AM CHILD MONITOR 07/25/2024 11:48 AM CHILD MONITOR Narrative [facility] - 07/27/2024 2:48 PM CHILD MONITOR HPV types 16, 18, 31, 33, 35, 39, 45, 51, 52, 56, 58, 59, 66 and 68 DNA were undetectable or below the pre-set threshold. Methodology: Sidney Nona 4800 HPV Test us Nancy Aponte DO MICROBIOLOGY Final Result Performing Organization Address [facility] Co de Phone Number [facility] [address] [place] [id number], [place] * XR CHEST 2 VIEWS PA AND LATERAL (05/30/2024 12:40 PM CDT) Anatomical Region Laterality Modality CHEST, THORAX, Lung, HEART Compu geovani Radiography 05/30/2024 12:5 4 PM CDT Narrative 05/30/2024 12:54 PM CDT For Patients: As a result of the Century Cures Act, medical imaging exams and procedure reports are released immediately into your electronic medical record. You may view this report before your referring provider. If you have questions, please contact your health care provider. Indication: Cough Technique: Chest 2 views Comparison: None Findings/Impression: Cardiovascular and mediastinum: Heart size and vasculature are normal in caliber and appearance. Mediastinum is within normal limits. Lungs and pleural spaces: Lungs are clear. No sign of infiltrate or mass. No sign of pleural effusion. No pneumothorax. Bones and soft tissues: No significant findings. Dictated by José Antonio Mendoza MD @ 05/30/2024 12:54:08 PM (Electronically Signed) Procedure Note José Antonio Mendoza MD - 05/30/2024 For Patients: As a result of the Cures Act, medical imagingexams and procedure reports are released immediately into your electronicmedical record. You may view this report before your referring provider.If you have questions, please contact your health care provider. Indication: Cough Technique: Chest 2 views Comparison: None Findings/Impression: Cardiovascular and mediastinum: Heart size and vasculature are normal incaliber and appearance. Mediastinum is within normal limits. Lungs and pleural spaces: Lungs are clear. No sign of infiltrate ormass. No sign of pleural effusion. No pneumothorax. Bones and soft tissues: No significant findings. Dictated by José Antonio Mendoza MD @ 05/30/2024 12:54:08 PM (Electronically Signed) Nick Malave MD GENERAL IMAGING Final Res ult from Last 3 Months Insurance * Guarantor: Noris Whitmore Account Type Relation to Patient Date of Phone Billing Address Personal/Family Self 1980 [address] [address] [place] [address] [facility] Care Teams Shop Tech Relationship Specialty Start Date End Date Pcp, No . PCP - General 02/10/19
[2024-08-23 12:45] VITALS: BP 122/79; PULSE 77; RESP 20; TEMP 36.6; O2SAT 97; BMI 35.2
--- NOTE | 2024-08-23 13:53 | ED_ITS ---
HPI - General Adult General Chief complaint: Fall/Minor Trauma Stated complaint: Fell down stairs Time Seen by Provider: 08/23/24 13:32 History of Present Illness HPI narrative: Pt reports she was walking down the stairs around 1215, tripped on a toy and rolled right ankle, fell down less than three feet and struck face on a water container of some kind. Has neck pain, face /forehead pain, small lac to lower lip, pain in right foot/ ankle. Denies LOC, no thinners. Rates pain in face 5 /10. Pt reports hx of whiplash injuries and concussions in the past. 43-year-old woman presenting to the emergency department following a fall. Tripped down a stair or 2 after stepping on a toy. She has sustained some injuries. She describes a hyperextension injury and pain about the right ankle. Somehow injured her right shoulder in the fall as well. Struck her forehead on a water container. Is having some soreness around her neck. Did cut her lip. Likely involve tooth feels unusual. Did not injure chest or abdomen. She does not take anticoagulants. Related Data Home Medications ?Medication ?Instructions ?Recorded ?Confirmed No Known Home Medications 08/23/24 08/23/24 Allergies Allergy/AdvReac Type Severity Reaction Status Date / Time amoxicillin Allergy Severe Unknown- Verified 07/24/23 09:10 as a child strawberry Allergy Unknown Anaphylaxis Verified 07/24/23 09:10 cephalexin AdvReac Mild Vomiting Verified 07/24/23 09:10 azithromycin AdvReac Verified 03/29/24 21:11 Penicillin Allergy Unknown Unknown Uncoded 07/24/23 09:10 Review of Systems Status of ROS: Reports: 6 or more systems reviewed and unremarkable except as noted in History and below [facility] Medical History Bronchitis ?J40 - Bronchitis, not specified as acute or chronic (ICD-10) Vaginal delivery (03/16/20) ?O80 - Encounter for full-term uncomplicated delivery (ICD-10) Spontaneous vaginal delivery (07/09/18) ?O80 - Encounter for full-term uncomplicated delivery (ICD-10) Mononucleosis syndrome (2018) ?B27.90 - Infectious mononucleosis, unspecified without complication (ICD-10) Hyperopic astigmatism of both eyes (02/24/19) ?H52.203 - Unspecified astigmatism, bilateral (ICD-10) Surgical History History of placement of ear tubes ?Z96.22 - Myringotomy tube(s) status (ICD-10) Family History Maternal Grandmother Breast cancer Social History Narrative: Does not drink alcohol Does not use illicit drugs Non-smoker Smoking Status: Never smoker Non-prescribed substance use: denies use Exam Narrative: Exam Narrative: Pleasant. NAD. Fully alert. Moving extremities without clear difficulty. There is mild erythema and subtle swelling at the right forehead. No calvarial defect appreciated. Neck is supple. No midline tenderness. She has sort palpation in the low paracervical musculature into the trapezius. Back is nontender. Lungs is clear with equal expansion excursion. No pain to palpation about the clavicles. She is sore to palpation in right AC joint area and superior shoulder. Well painful, good range of motion however in the shoulder. No apparent loss of strength. Might be a little puffy suggesting effusion though over the upper anterior shoulder. Heart in regular rate and rhythm. There is a cm in length cut underneath the right lower lip vermilion border. oozing blood very lightly. Abrasion noted on the buccal surface opposing this but I do not see a clear-cut here. Dentition appears to be intact. There is mild gingival inflammation generally along the upper teeth. I do not appreciate laxity to manipulation of the upper dentition. There is soreness more over the anterior right ankle to palpation. No instability appreciated to varus or valgus or AP stressors of the ankle. Does not have malleolar pain. No clear navicular or base of 5th metatarsal pain. Const: Vital Signs, click to edit/add: Vital Signs - 24 hr 08/23/24 12:45 Temperature 97.8 F Pulse Rate [Pulse Oximeter] 77 Respiratory Rate 20 Blood Pressure [Ri ght Upper Arm] 122/79 Pulse Oximetry 97 Oxygen Delivery Me thod Room Air Documenting provider has reviewed patient's vital signs: yes Course Vital Signs Vital signs: Initial Vital Signs Temperature 97.8 F 08/23/24 12:45 Temperature Source Temporal Artery Scan 08/23/24 12:45 Pulse Rate 77 08/23/24 12:45 Respiratory Rate 20 08/23/24 12:45 Blood Pressure 122/79 08/23/24 12:45 Blood Pressure Mean 93 08/23/24 12:45 Blood Pressure Position Sitting 08/23/24 12:45 Pulse Oximetry 97 08/23/24 12:45 Oxygen Delivery Method Room Air 08/23/24 12:45 Vital Signs Temperature 97.8 F 08/23/24 12:45 Pulse Rate 77 08/23/24 12:45 Respiratory Rate 20 08/23/24 12:45 Blood Pressure 122/79 08/23/24 12:45 Pulse Oximetry 97 08/23/24 12:45 Oxygen Delivery Method Room Air 08/23/24 12:45 Temperature 97.8 F 08/23/24 12:45 Pulse Rate 77 08/23/24 12:45 Respiratory Rate 20 08/23/24 12:45 Blood Pressure 122/79 08/23/24 12:45 Pulse Oximetry 97 08/23/24 12:45 Oxygen Delivery Method Room Air 08/23/24 12:45 Medications Administered Medications: Discontinued Medications Generic Name Dose Route Start Last Admin Trade Name Freq PRN Reason Stop Dose Admin Ibuprofen 600 mg 08/23/24 14:18 08/23/24 14:26 Ibuprofen 200 Mg Tablet PO 08/23/24 14:19 600 mg ONCE ONE Administration Medical Decision Making MDM Narrative Medical decision making narrative: I do not think will require head or neck imaging. No facial bones need to be imaged either at this time. I think it is unlikely that given mechanism and available movement of the right shoulder that x-rays will demonstrate any injury here unless there is some widening of the AC joint. It is a good 1st step however. Also imaging for the right ankle. Also seems to be more of a sprain than bony injury. She would appreciate an ice pack and ibuprofen. X-rays of the right shoulder and right ankle independently reviewed by me look to be absent any bony injury. No bony displacement noted either. Return to clean lip wound with Shur-Clens type solution. We did discuss options for repair. She would prefer Steri-Strip option. I did apply 1/8 inch Steri- Strip and this resulted in very good wound approximation and appeared to be controlling the oozing of blood. Offered arm sling initially accepted and then she thought better of it. Was also dispensed a brace for the right ankle which she intends to utilize more later. Rui wrap supplied for icing. Given rehabilitation exercises for shoulder and ankle. See patient discharge plan for further discussion I would ice your ankle and possibly a shoulder 2-3 times daily over the next few days. Let us know if you need a 6 inch Rui wrap to hold on ice packs. See handout for some idea of exercises to improve mobility in these 2 injured joints. You do not clearly have a shoulder bursitis at this time but I think the exercises could be useful As far as your lip goes, try to encourage the Steri-Strip to stay on for about 3 days at least, ideally 5, maybe 6. Trim the edges of it as it peels off so that the whole thing does not come off. Use the crutches for the 1st couple of days and then can start bearing a little more weight on your ankle I think. Can take up to 800 mg of ibuprofen or up to 1000 mg of acetaminophen per dose. Medical Records Medical records reviewed: Yes I reviewed the patient's medical records Discharge Plan Discharge Clinical Impression: Ankle strain, Strain of shoulder, Closed head injury, Laceration of lip Patient Disposition: Home w/ Parent or Adult Condition: Stable Additional Instructions: I would ice your ankle and possibly a shoulder 2-3 times daily over the next few days. Let us know if you need a 6 inch Rui wrap to hold on ice packs. See handout for some idea of exercises to improve mobility in these 2 injured joints. You do not clearly have a shoulder bursitis at this time but I think the exercises could be useful As far as your lip goes, try to encourage the Steri-Strip to stay on for about 3 days at least, ideally 5, maybe 6. Trim the edges of it as it peels off so that the whole thing does not come off. Use the crutches for the 1st couple of days and then can start bearing a little more weight on your ankle I think. Can take up to 800 mg of ibuprofen or up to 1000 mg of acetaminophen per dose. Prescriptions: No Action No Known Home Medications Follow Up/Referrals: Costa,Sunita R, PA-C [Referring] - Stand Alone Forms: [employer] Info Instructions
--- NOTE | 2024-08-23 14:18 | CRLHL7_ITS ---
For Patients: As a result of the Century Cures Act, medical imaging exams and procedure reports are released immediately into your electronic medical record. You may view this report before your referring provider. If you have questions, please contact your health care provider. Indication: HYPEREXTENSION OF THE ANKLE WITH GENERALIZED AND ANTERIOR PA. Technique: Right ankle 3 views. Comparison: None. Findings: Bones: Alignment is normal. No fractures or bone lesions. Small calcaneal Achilles and plantar enthesophytes. Joint spaces: Joint spaces are well maintained. Soft tissues: Unremarkable. Impression: No evident acute fracture or dislocation of the ankle. Dictated by Grover Cardenas MD @ 08/23/2024 2:58:32 PM (Electronically Signed)
--- NOTE | 2024-08-23 14:18 | CRLHL7_ITS ---
For Patients: As a result of the Cures Act, medical imaging exams and procedure reports are released immediately into your electronic medical record. You may view this report before your referring provider. If you have questions, please contact your health care provider. Indication: UPPER SHOULDER/AC JOINT ARE PAIN AFTER FALL Technique: Three views of the right shoulder. Comparison: None. Findings: No acute displaced fracture or malalignment. Impression: No acute displaced fracture or malalignment. Dictated by Alvaro Dixon MD @ 08/23/2024 2:55:57 PM (Electronically Signed)
[2024-08-23] MEDS: IBUPROFEN 200 MG TABLET 600 MG PO (14:26)
--- OUTSIDE RECORDS SUMMARY | 2024-08-23 14:52 | XMS_ITS | Clinical Summary ---
Author Organization [place] Address [address] [place] [address] Care Team Providers Care Gasoline Pump Mechanic Name Role Phone No Ref-Primary, Physician Primary Care Provider Allergies Active Allergy Reactions Criticality Noted Date Comments Penicillins Unknown 02/24/2019 Medications No known medications Encounters Date Type Department Care Team Description 06/21/2024 Telephone [place] Centralized Scheduling [facility] [place] [address] No Ref-Primary, Physician Results 06/21/[address] [phone] Marv Mcgee MD Follow Up (Requesting podiatry referral ) 06/20/2024 4:10 PM STAFFING BRANCH MANAGER Ancillary Procedure [address] [phone] Marv Hurley DO 06/20/2024 3:40 PM STAFFING BRANCH MANAGER Office Visit [facility] [address] [phone] Marv Hurley DO Foot injury, right, initial encounter (Primary Dx) 06/20/2024 Travel from Last 3 Months Social History Tobacco Use Types Packs/Day Years Used Date Smoking Tobacco: Never Smokeless Tobacco: Never Tobacco Cessation:Counseling Given: Not Answered Comments Unknown Sex and Gender Information Value Date Recorded Sex Assigned at Not on file Legal Sex Female 3:36 PM STAFFING BRANCH MANAGER Gender Identity Not on file Sexual Orientation Not on file Last Filed Vital Signs Vital Sign Reading Time Taken Comments Blood Pressure 112/73 06/20/2024 3:45 PM STAFFING BRANCH MANAGER Pulse 80 06/20/2024 3:45 PM STAFFING BRANCH MANAGER Temperature 36.7 C (98 F) 06/20/2024 3:45 PM STAFFING BRANCH MANAGER Respiratory Rate 18 06/20/2024 3:45 PM STAFFING BRANCH MANAGER Oxygen Saturation 98% 06/20/2024 3:45 PM STAFFING BRANCH MANAGER Inhaled Oxygen Concentration - - Weight 101.6 kg (224 lb) 06/20/2024 3:45 PM STAFFING BRANCH MANAGER Height - - Body Mass Index - [...] G/E 3 VIEWS STAT 06/20/2024 4:20 PM STAFFING BRANCH MANAGER Foot injury, right, initial encounter from Last 3 Months Results * XR Foot Right G/E 3 Views (06/20/2024 4:20 PM STAFFING BRANCH MANAGER) Anatomical Region Laterality Modality Foot, Ankle Right Computed Radiogr aphy Impressions 06/20/2024 4:32 PM STAFFING BRANCH MANAGER IMPRESSION: Normal joint spaces and alignment. No definitive evidence of an acute fracture, with attention to the base of the fifth metatarsal. No Lisfranc subluxation. Mild distal Achilles tendon enthesopathy. Calcaneal heel spur. GIOVANNY YAN MD SYSTEM ID: [id number] Narrative 06/20/2024 4:32 PM STAFFING BRANCH MANAGER XR FOOT RIGHT G/E 3 VIEWS 06/20/2024 [...] heel spur. GIOVANNY YAN MD SYSTEM ID: [id number] Marv Hurley DO [facility] ORDERA BLES Final Result from Last 3 Months Insurance [facility] Care Teams Gasoline Pump Mechanic Relationship Specialty Start Date End Date No Ref-Primary, Physician PCP - General 06/20/24
--- OUTSIDE RECORDS SUMMARY | 2024-08-23 14:52 | XMS_ITS | Clinical Summary ---
Author Organization [employer] [facility] Address [place], [place] [address] Care Team Providers Care Buckle Sewer Name Role Phone Pcp, No Primary Care [...] nasal solution (FLONASE)Indic ations:Chronic cough Inhale 1 Horatio in both nostrils two times daily. 16 [...] Department Care Team Description 08/14/2024 Telephone [facility] [address] [place] [address] Nancy Aponte, DO Follow Up 07/27/2024 1:15 PM HAZARDOUS MATERIALS TANKER DRIVER Office Visit [facility] [address] [place] [address] Ramírez Cheema, PHOTOGRAPHER AERIAL Derm Problem 07/27/2024 Travel 07/27/2024 Nurse Triage [facility] [id number] [place] [phone] Pcp, No Bite, Animal 07/24/2024 10:35 AM HAZARDOUS MATERIALS TANKER DRIVER Office Visit [facility] [address] [place] [address] Nancy Aponte, Establish Care; Physical (43 year old female); Cough (Whooping cough in March, cough has not gone away) 07/24/2024 Travel 07/11/2024 3:20 PM HAZARDOUS MATERIALS TANKER DRIVER Office [place] [facility] [address] [place] [address] Giovanny Marinelli, OD Eye Exam (CEE) 07/11/2024 Travel 05/30/2024 12:45 PM CDT Ancillary Procedure [facility] [address] [place] [address] 05/30/2024 12:05 PM CDT Office Visit [address] [address] Nick Malave MD Cough (Patient was diagnosed [...] drink = 0.6 oz pur e alcohol) [facility] Utilities Answer Date Recorded Do you have [...] Comments Blood Pressure 116/58 07/27/2024 1:23 PM HAZARDOUS MATERIALS TANKER DRIVER Pulse 78 07/27/2024 1:23 PM HAZARDOUS MATERIALS TANKER DRIVER Temperature 36.4 C (97.5 F) 07/27/2024 1:23 PM HAZARDOUS MATERIALS TANKER DRIVER Respiratory Rate 16 07/27/2024 1:23 PM HAZARDOUS MATERIALS TANKER DRIVER Oxygen Saturation 96% 07/27/2024 1:23 PM HAZARDOUS MATERIALS TANKER DRIVER Inhaled Oxygen Concentration - - Weight 104.3 kg (229 lb 14.4 oz) 2023 10:36 AM HAZARDOUS MATERIALS TANKER DRIVER Height 164.4 cm (5' 4.72) 07/24/2024 1 0:36 AM HAZARDOUS MATERIALS TANKER DRIVER Body Mass Index 38.58 07/24/2024 10:36 AM HAZARDOUS MATERIALS TANKER DRIVER Plan of Treatment Upcoming Encounters Date Type Department Care Team (Late st Contact Info) Description 09/25/2024 2:00 PM HAZARDOUS MATERIALS TANKER DRIVER Office Visit [facility] [address] [place] [address] Eunice Mora PA [address] [place] [address] Health Maintenance Due Date Last Done Comments [...] Comments HEMOGLOBIN A1C Routine 07/24/2024 11:28 AM HAZARDOUS MATERIALS TANKER DRIVER Diabetes mellitus screening LIPID PANEL W REFLEX MEASURED LDL Routine 07/24/2024 11:28 AM HAZARDOUS MATERIALS TANKER DRIVER Screening cholesterol level ACTIVITY THERAPIST THIN PREP PAP SCREEN IMAGED Routine 07/24/2024 11:15 AM HAZARDOUS MATERIALS TANKER DRIVER Screening for cervical cancer HPV HIGH RISK Routine 07/24/2024 11:15 AM HAZARDOUS MATERIALS TANKER DRIVER Screening for cervical cancer XR CHEST 2 VIEWS PA AND LATERAL Routine 05/30/2024 12:40 PM CDT Cough, unspecified type from Last 3 Months Results * HEMOGLOBIN A1C (07/24/2024 11:28 AM HAZARDOUS MATERIALS TANKER DRIVER) HEMOGLOBIN A1C 5.3 <5.7 % of total [...] diagnosis of diabetes in children. According to [place] Diabetes Association (ADA) guidelines, hemoglobin A1c <7.0% represents optimal control in non- diabetic patients. Different metrics may apply to specific patient populations. Standards of Medical Care in Diabetes(ADA). Blood BLOOD SPECIMEN / Unknown 07/24/2024 11:28 AM HAZARDOUS MATERIALS TANKER DRIVER 07/24/2024 11:29 AM HAZARDOUS MATERIALS TANKER DRIVER [facility] Nancie Aponte DO CHEMISTRY Final Result [facility] [address] [place] [address], [facility] [address] [place] [phone] * (ABNORMAL) LIPID PANEL W REFLEX MEASURED LDL (07/24/2024 11:28 AM HAZARDOUS MATERIALS TANKER DRIVER) CHOLESTEROL, TOTAL 133 <200 mg/dL [facility] [...] LDL-C. Saleem BEAN et al. AMARJIT. 2013;310(19): 7238-0578 (http://education.Trovix/faq/TAS507) CHOL/HDLC RATIO 3.5 <5.0 (calc) [facility] NON HDL CHOLESTEROL 95 <130 mg/dL (calc) [facility] Comment: For patients with diabetes plus 1 major ASCVD risk factor, treating to a non-HDL-C goal of <100 mg/dL (LDL-C of <70 mg/dL) is considered a therapeutic option. Blood BLOOD SPECIMEN / Unknown 07/24/2024 11:28 AM HAZARDOUS MATERIALS TANKER DRIVER 07/24/2024 11:29 AM HAZARDOUS MATERIALS TANKER DRIVER Nancy Aponte DO CHEMISTRY Final Result Performing Organization Address City/State/[facility] Co de Phone Number Marquee [facility] [address] [place] [address], [facility] [address] [place] [address] * ACTIVITY THERAPIST THIN PREP PAP SCREEN IMAGED [[id number]] (07/24/2024 11:15 AM HAZARDOUS MATERIALS TANKER DRIVER) Case Report Gynecologic Cytology Report Case: [id number] Authorizing Provider: Nancy Aponte DO Collected: 07/24/2024 1115 Ordering Location: [facility] Received: 07/24/2024 1210 Clinic First Screen: Peri Peña Specimen: ACTIVITY THERAPIST ThinPrep Vial Screening, Cervical 08/01/2024 12:21 PM HAZARDOUS MATERIALS TANKER DRIVER [facility] INTERPRETATION/ RESULT NEGATIVE FOR INTRAEPITHELIAL LESION OR MALIGNANCY (NIL) (none) 08/01/2024 12:21 PM HAZARDOUS MATERIALS TANKER DRIVER [facility] IMEN ADEQUACY Satisfactory for evaluation Endocervical component present 08/01/2024 12:21 PM HAZARDOUS MATERIALS TANKER DRIVER [employer] ENTRAL LAB[facility]AT[facility] HPV REQUEST HPV and PAP 08/01/2024 12:21 PM HAZARDOUS MATERIALS TANKER DRIVER [facility] EN[facility]AL [facility] Date of LMP 07/06/2024 08/01/2024 12:21 PM HAZARDOUS MATERIALS TANKER DRIVER [facility] ENTRSC LABORAT[facility] Last Pap Date 11/22/17 08/01/2024 12:21 PM HAZARDOUS MATERIALS TANKER DRIVER [facility] Last Pap Result NIL 12:21 PM HAZARDOUS MATERIALS TANKER DRIVER [facility] ENTRAL LABORATORY Abnormal Pap or [place] Bx in last 5 years No 08/01/2024 12:21 PM HAZARDOUS MATERIALS TANKER DRIVER [facility] Menstrual Status Regular Periods 08/01/2024 12:21 PM HAZARDOUS MATERIALS TANKER DRIVER [facility] [place] Bx Done Today No 08/01/2024 12:21 PM HAZARDOUS MATERIALS TANKER DRIVER [facility] Additional Information None given 08/01/2024 12:21 PM HAZARDOUS MATERIALS TANKER DRIVER [facility] Comment: Cytology is screened at [facility] - [address], [place] [address] and [facility] - [address] [facility] [place] [address] and [facility] - [address] [place] [address] Interpreted at [facility] - [address], [place] [address] Automated Review Successful 08/01/2024 12:21 PM HAZARDOUS MATERIALS TANKER DRIVER [facility] Comment:Specimen processed s uccessfully by automated editor news device, ThinPrep Imaging System, [employer] ANCILLARY TESTING ACTIVITY THERAPIST HPV Ordered, Please see separate report 08/01/2024 12:21 PM HAZARDOUS MATERIALS TANKER DRIVER [facility] Note The pap test is [...] pre-malignant and malignant lesions. 08/01/2024 12:21 PM HAZARDOUS MATERIALS TANKER DRIVER [facility] Other (Cervical) Non-Blood / Unknown 07/24/2024 11:15 AM HAZARDOUS MATERIALS TANKER DRIVER 07/24/2024 12:10 PM HAZARDOUS MATERIALS TANKER DRIVER Nancy Aponte DO PATHOLOGY/CYTOLOGY Final Resu lt [facility] [address] [place] [address], * HPV HIGH RISK (07/24/2024 11:15 AM HAZARDOUS MATERIALS TANKER DRIVER) TYPE 16 Negative Negative 07/27/2024 2:48 PM HAZARDOUS MATERIALS TANKER DRIVER [facility] TRAL LABORATORY TYPE 18 Negative Negative 07/27/2024 2:48 PM HAZARDOUS MATERIALS TANKER DRIVER [facility] TRAL LABORATORY OTHER HIGH RISK TYPES Negative Negative 07/27/2024 2:48 PM HAZARDOUS MATERIALS TANKER DRIVER [facility] TRA LABORATORY Other (Cervical) Non-Blood / Unknown 07/24/2024 11:15 AM HAZARDOUS MATERIALS TANKER DRIVER 07/25/2024 11:48 AM HAZARDOUS MATERIALS TANKER DRIVER Narrative [facility] - 07/27/2024 2:48 PM HAZARDOUS MATERIALS TANKER DRIVER HPV types 16, 18, 31, 33, 35, 39, 45, 51, 52, 56, 58, 59, 66 and 68 DNA were undetectable or below the pre-set threshold. Methodology: Sidney Nona 4800 HPV Test us Nancy Aponte DO MICROBIOLOGY Final Result Performing Organization Address [facility] Co de Phone Number [facility] [address] [place] [address], [place] * XR CHEST 2 VIEWS PA [...] Billing Address Personal/Family Self 1980 [address] [address] [place] [address] [facility] Care Teams Buckle Sewer Relationship Specialty Start Date End Date Pcp, No . PCP - General 02/10/19
--- OUTSIDE RECORDS SUMMARY | 2024-08-23 14:52 | XMS_ITS | Referral Summary ---
Author Organization [facility] Address [facility] [place] [address] Care Team Providers Care Internet Developer Name Role Phone No Ref-Primary, Physician Primary Care Provider Encounters Date Type Department Care Team Description 06/21/2024 Telephone [facility] Centralized Scheduling [address] [place] [address] No Ref-Primary, Physician Results 06/21/[address] [phone] Marv Mcgee MD Follow Up (Requesting podiatry referral ) 06/20/2024 4:10 PM IN[employer]ORY CONTROL SPECIALIST Ancillary Procedure [address] [phone] Marv Hurley DO 06/20/2024 Travel 06/20/2024 3:40 PM IN[employer]ORY CONTROL SPECIALIST Office Visit [facility] [address] [phone] Marv Hurley DO Foot injury, right, initial [...] on file Legal Sex Female 3:36 PM INVENTORY CONTROL SPECIALIST Gender Identity Not on file Sexual Orientation Not on file Last Filed Vital Signs Vital Sign Reading Time Taken Comments Blood Pressure 112/73 06/20/2024 3:45 PM IN[employer]ORY CONTROL SPECIALIST Pulse 80 06/20/2024 3:45 PM IN[employer]ORY CONTROL SPECIALIST Temperature 36.7 C (98 F) 06/20/2024 3:45 PM IN[employer]ORY CONTROL SPECIALIST Respiratory Rate 18 06/20/2024 3:45 PM INVENTORY CONTROL SPECIALIST Oxygen Saturation 98% 06/20/2024 3:45 PM INVENTORY CONTROL SPECIALIST Inhaled Oxygen Concentration - - Weight 101.6 kg (224 lb) 06/20/2024 3:45 PM INVENTORY CONTROL SPECIALIST Height - - Body Mass Index - - Plan of Treatment Not on file Procedures Procedure Name Priority Date/Time Associated Diagnosis Comments XR FOOT RIGHT G/E 3 VIEWS STAT 06/20/2024 4:20 PM IN[employer]ORY CONTROL SPECIALIST Foot injury, right, initial encounter from Last 3 Months Results * XR Foot Right G/E 3 Views (06/20/2024 4:20 PM INVENTORY CONTROL SPECIALIST) Anatomical Region Laterality Modality Foot, Ankle Right Computed Radiogr aphy Impressions 06/20/2024 4:32 PM INVENTORY CONTROL SPECIALIST IMPRESSION: Normal joint spaces and alignment. No definitive evidence of an acute fracture, with attention to the base of the fifth metatarsal. No Lisfranc subluxation. Mild distal Achilles tendon enthesopathy. Calcaneal heel spur. GIOVANNY YAN MD SYSTEM ID: [id number] Narrative 06/20/2024 4:32 PM INVENTORY CONTROL SPECIALIST XR FOOT RIGHT G/E 3 VIEWS 06/20/2024 [...] heel spur. GIOVANNY YAN MD SYSTEM ID: [id number] Marv Linder Xavi [facility] Final Result from Last 3 Months Insurance [facility] Care Teams Internet Developer Relationship Specialty Start Date End Date No Ref-Primary, Physician PCP - General 06/20/24
== END 2024-08-23 16:09 | disposition home or self-care (01) ==
PROVIDERS: Emergency Provider Family Medicine; PCP Family Medicine
DX: S96.911A Strain of unspecified muscle and tendon at ankle and foot level, right foot, initial encounter (principal); S46.911A Strain of unspecified muscle, fascia and tendon at shoulder and upper arm level, right arm, initial encounter; S09.90XA Unspecified injury of head, initial encounter; S01.511A Laceration without foreign body of lip, initial encounter; W10.9XXA Fall (on) (from) unspecified stairs and steps, initial encounter
CPT/HCPCS: 73030; 73610; 99284; A9270